=== PATIENT | male | born 1945 | race Caucasian/White ===

== ENCOUNTER 2024-06-10 09:21 | Outpatient (REF) | payer BC, SELFPAY ==
--- NOTE | ~2024-06-10 | FL_ITS ---
EXAMINATION: XR FLUOROSCOPY UPPER GI WITH AIR CLINICAL INFORMATION: Dysphagia COMPARISON: None TECHNIQUE: Fluoroscopic air contrast upper GI examination was performed utilizing standard techniques with thin and thick barium and effervescent granules. Numerous spot images were obtained. FINDINGS: Lateral cine images of the oropharynx and hypopharynx demonstrate normal swallow mechanism with normal epiglottic inversion and soft palate elevation. No tracheal penetration, glottic or subglottic aspiration identified. No nasopharyngeal reflux present. Hypopharyngeal structures appear normal without evidence of mass or diverticulum. There was no significant cricopharyngeal achalasia. Dual and single contrast images of the esophagus demonstrate normal caliber, contour, and mucosal pattern. No masses or ulcerations are seen. There is to and fro motion of the barium column with nonpropulsive tertiary contractions noted throughout the esophagus. A nonobstructing Schatzki's ring is present. A small type I hiatal hernia is present. No significant gastroesophageal reflux was seen during the course of the examination and on reflux views. Dual contrast and single contrast images of the stomach demonstrated a normal contour. The gastric rugal folds have a thickened appearance, suggestive of gastritis. No masses or ulcerations are seen. Contrast freely passed into the gastric antrum and duodenal bulb without delay. Single and air-contrast images of the duodenal bulb demonstrate no abnormality. The duodenal sweep has a normal appearance, course, and mucosal fold appearance. The imaged proximal jejunum has a normal fold pattern and caliber. FLUOROSCOPY TIME: 4 minutes 46 seconds Number of Spot Images: 8 Number of Cine: 14 DOSE AREA PRODUCT: [id number] uGy-m2 (microgray-meter squared) FL/FL barium swallow IMPRESSION: 1. Esophageal dysmotility. 2. Nonobstructing Schatzki's ring. 3. Small type I hiatal hernia. 4. Thickened appearance of the gastric rugal folds, suggestive of gastritis. This procedure was performed by Jovan Angeles PA-C, and supervised by Dr. Jones Electronically signed by: Jese Jones MD 06/11/2024 03:56 PM [facility]
--- OUTSIDE RECORDS SUMMARY | 2024-06-10 09:26 | XMS_ITS | Continuity of Care Document ---
Author Organization [facility] Address 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, [address] [place] [address]- Attending Physician: Melani Centeno Admitting Physician: Melani Centeno Referring Physician: Melani Centeno Encounter Type: OutPatient One Time Allergies, Adverse Reactions, Alerts Substance Criticality Severity Reaction Reaction Severity Status losartan dizziness Active Immunizations Given and Recorded Vaccine Date Status Refusal Reason influenza virus vaccine, inactivated 03/06/24 Sixto rded influenza virus vaccine, inactivated 03/10/23 Sixto rded influenza virus vaccine, inactivated 04/13/22 Sixto rded influenza virus vaccine, inactivated 03/21/21 Sixto rded influenza virus vaccine, inactivated 03/23/20 Sixto rded influenza virus vaccine, inactivated 1 04/15/18 Re corded influenza virus vaccine, inactivated 2 03/28/17 Gi jayda influenza virus vaccine, inactivated 3 06/03/16 Gi jayda influenza virus vaccine, inactivated 4 05/15/15 Gi jayda influenza virus vaccine, inactivated 5 03/31/12 Re corded SARS-CoV-2(COVID-19)mRNA-LNP vac([id number]) 03/06/24 Recorded SARS-CoV-2(COVID-19)mRNA-LNP vac([id number]) 04/11/23 Recorded RSV vaccine preF3, recombinant 04/11/23 Recorded tetanus-diphtheria toxoids (Td) 6 07/10/22 Given pneumococcal 20-valent conjugate vaccine 7 07/10/22 Given [id number] bivalent booster vax 05/08/22 Recorded zoster vaccine, inactivated 07/12/21 Recorded zoster vaccine, inactivated 04/06/21 Recorded SARS-CoV-2 (COVID-19) mRNA BNT-162b2 vac 04/15/21 Recorded SARS-CoV-2 (COVID-19) mRNA BNT-162b2 vac 8 09/21/20 Recorded SARS-CoV-2 (COVID-19) mRNA BNT-162b2 vac 9 08/31/20 Recorded SARS-CoV-2 (COVID-19) mRNA BNT-162b2 vac 08/10/20 Recorded Influenza Virus Vaccine (oldterm) 04/19/19 Recorde d Zostavax (oldterm) 04/14/15 Recorded pneumococcal 13-valent vaccine 03/22/15 Recorded pneumococcal 23-valent vaccine 10 10/14/12 Recorde d diphtheria/tetanus/pertussis, acel(DTaP) 11 10/13/12 Recorded 1Result Comment: [04/21/2018] [facility] 2Result Comment: [03/28/2017] [id number] flu vaccine [facility]: [id number] 3Result Comment: [06/03/2016] pt. tolerated inj. without complications...[place] 4Result Comment: [05/15/2015] given w/o incident..AD 5Location History: [facility] 6Result Comment: pt. tolerated inj. without complications....[place] 7Result Comment: pt. tolerated inj. without complications....[place] 8Result Comment: per 9Result Comment: per 10Location History: [facility] 11Location History: [facility] Medications aspirin 81 mg oral delayed release tablet 81 mg, 1, tablet, By Mouth, Daily, # 90 tablet, Refills 3, Tot. Refills 3, Maintenance, 11/14/23 11:15:00 AM EDT, Route to Pharmacy Electronically, [facility]/pharmacy #[id number], Partial fill upon patient request if the prescription is for a schedule II opioid drug., 180, cm, 11/14/23 10:32:00 EDT, Height, 94,kg, 11/14/23 10:23:00 EDT, Dry Weight Start Date: 11/14/23 Status: Ordered Quantity: 90.0 Unit: tablet Repeat number: 4 atenolol 25 mg oral tablet See Instructions, TAKE 1 TABLET BY MOUTH EVERY DAY, # 90 tablet, Refills 3, Tot. Refills 3, Maintenance, 04/22/24 8:51:00 AM EDT, Instructions Replace Required Details, Route to Pharmacy Electronically, [facility]/pharmacy #[id number], 173, cm, 04/22/24 8:32:00 EDT, Height, 93, kg, 04/22/24 8:19:00 EDT, Dry Weight Start Date: 04/22/24 Status: Ordered Quantity: 90.0 Unit: tablet Repeat number: 4 betamethasone topical dipropionate 0.05% cream 1 application, Topically, 2 times a day, # 45 Gm, 0 Refills, Maintenance, 04/04/23 3:46:00 PM EDT, Cream, [facility]/pharmacy #[id number], Partial fill upon patient request if the prescription is for a schedule II opioid drug., 1 application Topically 2 times a day, 180, cm, 03/26/23 9:31:00 EDT, Height, 100, kg, 07/13/21 13:25:00 EST, Dry Weight Start Date: 04/04/23 Status: Ordered Quantity: 45.0 Unit: g Repeat number: 1 Breo Ellipta 200 mcg-25 mcg/inh inhalation powder 1 puffs, Inhalation, Daily, # 1 each, 11 Refills, Maintenance, 11/14/23 11:08:00 AM EDT, Powder, [facility]/pharmacy #[id number], Partial fill upon patient request if the prescription is for a schedule II opioid drug., 1 puffs Inhalation Daily, 180, cm, 11/14/23 10:32:00 EDT, Height, 94, kg, 11/14/23 10:23:00 EDT, Dry Weight Start Date: 11/14/23 Status: Ordered Quantity: 1.0 Unit: each Repeat number: 12 diclofenac 1% topical gel = 2 Gm, Topically, 4 times a day, PRN hip pain, not to exceed 16 grams/day/single joint of lower extremities, # 240 Gm, 5 Refills, Maintenance, 04/22/24 9:01:00 AM EDT, Gel, [facility]/pharmacy #[id number], Partial fill upon patient request if the prescription is for a schedule II opioid drug., 173, cm, 04/22/24 8:32:00 EDT, Height, 93, kg, 04/22/24 8:19:00 EDT, Dry Weight Start Date: 04/22/24 Status: Ordered Quantity: 240.0 Unit: g Repeat number: 6 fluticasone 50 mcg/inh nasal spray See Instructions, USE 1 SPRAY IN BOTH NOSTRILS DAILY FOR 30 DAYS, # 16 mL, 5 Refills, Maintenance, 12/09/23 4:12:00 PM EDT, [id number], 30, USE 1 SPRAY IN BOTH NOSTRILS DAILY FOR 30 DAYS, 180, cm, 11/14/23 11:20:00 EDT, Height, 94, kg, 11/14/23 10:23:00 EDT, Dry Weight Start Date: 12/09/23 Status: Ordered Quantity: 16.0 Unit: mL Repeat number: 1 freestyle govind sensors 14 day freestyle govind sensors 14 day, See Instructions, # 28 Unknown, Refills 11, Tot. 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 Refills 0, Maintenance, PLEASE USE TO CHECK BG DAILY FOR DX: E11.9 FREETYLE GOVIND SENSOR, 06/11/21 10:29:00 AM EST, Compound, 180, cm, 06/11/21 9:56:00 EST, Height Start Date: 06/11/21 Status: Ordered Quantity: 1.0 Unit: Unknown Repeat number: 1 glimepiride 2 mg oral tablet 1 tablet, By Mouth, 2 times a day, # 180 tablet, 3 Refills, Maintenance, 04/22/24 8:55:00 AM EDT, [facility]/pharmacy #[id number], put on file, 173, cm, 04/22/24 8:32:00 EDT, Height, 93, kg, 04/22/24 8:19:00 EDT,Dry Weight Start Date: 04/22/24 Status: Ordered Quantity: 180.0 Unit: tablet Repeat number: 4 levocetirizine 5 mg oral tablet 1 tablet, By Mouth, Daily in PM, # 90 tablet, 1 Refills, Maintenance, 01/01/23 7:47:00 AM EDT, [facility] [id number], 90, TAKE 1 TABLET BY MOUTH EVERY EVENING, 180, cm, 10/29/22 9:16:00 EDT, Height, 100, kg, 07/13/21 13:25:00 EST, Dry Weight Start Date: 01/01/23 Status: Ordered Quantity: 90.0 Unit: tablet Repeat number: 1 lovastatin 40 mg oral tablet 1 tablet, By Mouth, Daily, # 90 tablet, 3 Refills, Maintenance, 04/22/24 8:52:00 AM EDT, [facility]/pharmacy #[id number], put on file, 173, cm, 04/22/24 8:32:00 EDT, Height, 93, kg, 04/22/24 8:19:00 EDT, Dry Weight Start Date: 04/22/24 Status: Ordered Quantity: 90.0 Unit: tablet Repeat number: 4 metFORMIN 1000 mg oral tablet 1 tablet, By Mouth, 2 times a day, # 180 tablet, 3 Refills, Maintenance, 04/22/24 8:52:00 AM EDT, [facility]/pharmacy #[id number], put on file, 173, cm, 04/22/24 8:32:00 EDT, Height, 93, kg, 04/22/24 8:19:00 EDT,Dry Weight Start Date: 04/22/24 Status: Ordered Quantity: 180.0 Unit: tablet Repeat number: 4 montelukast 10 mg oral tablet See Instructions, TAKE 1 TABLET BY MOUTH IN THE EVENING NEEDED SINUS SYMPTOMS, # 90 tablet, Refills 0, Maintenance, 08/30/22 3:25:00 PM EST, Instructions Replace Required Details, Route to PharmacyElectronically, [id number], 180, cm, 07/10/22 13:44:00 EST, Height, 100, kg, 07/13/21 13:25:00 EST, Dry Weight Start Date: 08/30/22 Status: Ordered Quantity: 90.0 Unit: tablet Repeat number: 1 NIFEdipine (Eqv-Procardia XL) 90 mg oral tablet, extended release 1 tablet, By Mouth, Daily, # 90 tablet, 3 Refills, Maintenance, 04/22/24 8:52:00 AM EDT, [facility]/pharmacy #[id number], put on file, 173, cm, 04/22/24 8:32:00 EDT, Height, 93, kg, 04/22/24 8:19:00 EDT, Dry Weight Start Date: 04/22/24 Status: Ordered Quantity: 90.0 Unit: tablet Repeat number: 4 omeprazole 20 mg oral enteric coated capsule 1 capsule, By Mouth, 2 times a day, # 180 capsule, 1 Refills, Maintenance, 08/13/23 12:25:00 PM EST,[facility]/pharmacy #[id number], 180, cm, 07/11/23 10:28:00 EST, Height Start Date: 08/13/23 Status: Ordered Quantity: 180.0 Unit: capsule Repeat number: 2 Ventolin HFA 108 mcg/inh inhalation aerosol with adapter 2 puffs, Inhalation, Every 6 hours, PRN for wheezing, # 8 Gm, 11 Refills, Maintenance, 10/04/22 1:07:00 PM EDT, Aerosol, [facility]/pharmacy #[id number], Partial fill upon patient request if the prescription is for a schedule II opioid drug., 180, cm, 10/04/22 12:42:00 EDT, Height, 100, kg, 07/13/21 13:25:00 EST, Dry Weight Start Date: 10/04/22 Status: Ordered Quantity: 8.0 Unit: g Repeat number: 12 Problem List Condition Confirmation Course Effective Dates Status H ealth Status Informant Pancreatic cyst 1 Confirmed Active Diabetes mellitus Confirmed Active Right hip pain Confirmed Active Hyperlipidemia Confirmed Active Hypertensive disorder Confirmed Active Asthma Confirmed Active Obese class I Confirmed Active Obesity Confirmed Active Routine medical exam Confirmed Active 1due for repeat scan in 2019 Results Radiology Reports * Exam Date Time Procedure Performing Provider Status 05/24/24 1:52 PM US Renal Bladder Genesis Ly odified Notes: (US Renal Bladder) Reason For Exam: calculus of kidney RESULT: US Renal Bladder US Renal Bladder Reason: calculus of kidney COMPARISON: 05/27/2023. FINDINGS: Right kidney: 11.7 cm in length. No hydronephrosis. Normal parenchymal thickness and echotexture. No stones. No suspicious mass. Left kidney: 11.8 cm in length. No hydronephrosis. Normal parenchymal thickness and echotexture. There is a 4 mm nonobstructing echogenic focus in the lower pole. There is a 5 mm nonobstructing echogenic focus in the upper pole. No suspicious mass. Urinary bladder: The urinary bladder volume measures 160 cc. Bilateral ureteral jets are identifiedon color Doppler imaging suggesting ureterovesicular junction patency. The prostate measures 39 cc. Liver: Partially-imaged liver is echogenic likely representing hepatic steatosis. IMPRESSION: 1. 2 nonobstructing echogenic renal foci in the left kidney ranging in size from 4 to 5 mm consistent with nonobstructing renal calculi. There is no evidence of obstructive uropathy. WSN: [id number] Ordering Physician: Melani Michelle Dictated By: Cecilia Burgess MD Dictated Date/Time: 05/25/24 8:30 am Reviewed By: Cecilia Burgess MD Signed By: Cecilia Burgess MD Signed Date/Time: 05/25/24 8:30 am Transcribed By: LEONOR Transcribed Date/Time: 05/25/24 8:23 am Social History Social History Type Response Smoking Status Never smoker entered on: 08/19/14 Sex Sex Representation Male (finding) Patient Care team information Care Team Personnel Name: Leelee Dobson MD Position: [facility] Physician - Primary Care Member Role: PCP Address: [address] [place] [address] Telecom: Care Team Related Persons Name: NEVAEH FENTON Name: RADAMES LORA Insurance Providers Guarantor name: DAYANNA LORA Health Plan Information #: 1 Payer: MEDICARE PART B OUTPT Member Number: [id number] Policy Number: NA Group Number: NA Health Plan Information #: 2 Payer: MEDEX Member Number: [id number] Policy Number: NA Group Number: NA
== END 2024-06-10 09:22 | disposition home or self-care (01) ==
LOC: HO.XRAY 09:21
PROVIDERS: Visit Provider Otolaryngology
DX: R13.10 Dysphagia, unspecified (principal)
CPT/HCPCS: 74220

== ENCOUNTER → 2024-06-10 09:45 | Outpatient (BNV) | payer BC, SELFPAY | PROVIDERS: Visit Provider Physician Assistant Surgical | DX: R13.10 Dysphagia, unspecified (principal) | CPT/HCPCS: 74246 ==